=== PATIENT | male | born 1975 | race Hispanic/Latino ===

== ENCOUNTER 2018-08-25 23:14 | Emergency (ER) | payer OTHER ==
[2018-08-25 23:20] VITALS: RESP 18; TEMP 98.3
--- NOTE | 2018-08-26 01:07 | ED PDOC ---
HPI: Chest Pain Time Seen by Provider: 08/25/18 23:25 Chief Complaint (Nursing): Anxiety Chief Complaint (Provider): Chest Pain and Anxiety History Per: Patient History/Exam Limitations: no limitations Onset/Duration Of Symptoms: Hrs (x1) Current Symptoms Are (Timing): Still Present Additional Complaint(s): 43 y/o male with a PMHx of HIV, HTN and Anxiety presents to the ED for evaluation of chest pain, onset one hour prior to arrival. Patient's last viral load is undetectable. Patient reports of having drank 4-5 coffees today and feeling anxious. Patient states while at home, his heart began racing associated with numbness to the hands and feet and sudden onset of dizziness thus prompting patient to call 911. Patient reports of taking Xanax prior to arrival with a resolution in symptoms. Of note, patient reports symptoms are similar to previous anxiety attacks but was more severe. Patient additionally reports of a history of polycythemia at which time required phlebotomy. PMD: Out of [facility] Past Medical History Reviewed: Historical Data, Nursing Documentation, Vital Signs Vital Signs: Last Vital Signs Temp 98.3 F 08/25/18 23:18 Pulse 76 08/25/18 23:18 Resp 18 08/25/18 23:18 BP 163/107 H 08/25/18 23:18 Pulse Ox 100 08/25/18 23:18 - Medical History PMH: Anxiety, HIV, HTN Denies: Chronic Kidney Disease - Surgical History Surgical History: Appendectomy, Cholecystectomy - Family History Family History: States: Unknown Family Hx - Immunization History Hx Tetanus Toxoid Vaccination: No Hx Influenza Vaccination: No Hx Pneumococcal Vaccination: No - Allergies Allergies/Adverse Reactions: Allergies Allergy/AdvReac Type Severity Reaction Status Date / Time No Known Allergies Allergy Verified 08/25/18 23:17 Review of Systems ROS Statement: Except As Marked, All Systems Reviewed And Found Negative Cardiovascular: Positive for: Chest Pain Gastrointestinal: Negative for: Nausea, Vomiting Neurological: Positive for: Numbness Psych: Positive for: Anxiety Physical Exam - Reviewed Nursing Documentation Reviewed: Yes Vital Signs Reviewed: Yes - Physical Exam Appears: Positive for: No Acute Distress Head Exam: Positive for: ATRAUMATIC, NORMOCEPHALIC Skin: Positive for: Normal Color, Warm, Dry Eye Exam: Positive for: Normal appearance, EOMI, PERRL Neck: Positive for: Normal, Painless ROM, Supple Cardiovascular/Chest: Positive for: Regular Rate, Rhythm. Negative for: Murmur Respiratory: Positive for: Normal Breath Sounds. Negative for: Respiratory Distress Gastrointestinal/Abdominal: Positive for: Normal Exam, Soft. Negative for: Tenderness Extremity: Positive for: Normal ROM. Negative for: Pedal Edema, Deformity Neurologic/Psych: Positive for: Alert, Oriented. Negative for: Motor/Sensory Deficits - Laboratory Results Result Diagrams: 08/26/18 00:20 08/26/18 00:20 - ECG ECG: Positive for: Interpreted By Me, Viewed By Me ECG Rhythm: Positive for: Sinus Rhythm () Rate: 76 O2 Sat by Pulse Oximetry: 100 (RA) Pulse Ox Interpretation: Normal Medical Decision Making Medical Decision Making: Time: 001 Impression: 43 y/o male with chest pain, insetting of known anxiety. Plan: -- EKG -- Alcohol Serum -- CMP -- Urine Drug Screen -- Troponin I -- CBC with Differentials -- Heplock Insertion Time: 0148 -- Labs demonstrate no clinically significant abnormalities except for elevated hemoglobin that remains consistent with previous history of previous of polycythemia Patient remains asymptomatic at this time. Patient is stable for discharge home with a diagnosis of anxiety. Scribe Attestation: Documented by Rima Hernandez, acting as a scribe for Garett Trevizo MD. Provider Scribe Attestation: All medical record entries made by the Scribe were at my direction and personally dictated by me. I have reviewed the chart and agree that the record accurately reflects my personal performance of the history, physical exam, medical decision making, and the department course for this patient. I have also personally directed, reviewed, and agree with the discharge instructions and disposition. Disposition - Clinical Impression Clinical Impression: Anxiety attack - Patient ED Disposition Is Patient to be Admitted: No Counseled Patient/Family Regarding: Studies Performed, Diagnosis - Disposition Disposition: Routine/Home Disposition Time: 01:48 Condition: STABLE Instructions: Panic Disorder Forms: [facility] (Nepali)
[2018-08-26 01:12] LABS: BASO # 0.1 K/uL (0.0-0.2); EOS # 0.2 K/uL (0.0-0.7); EOS % 2.7 % (0.0-4.0); HEMOGLOBIN 18.2 g/dL (12.0-18.0); LYMPH % 27.9 % (20.0-40.0); MEAN CELL VOLUME 89.7 fl (80.0-94.0); MEAN CORPUSCULAR HEMOGLOBIN 30.5 pg (27.0-31.0); MEAN PLATELET VOLUME 7.9 fl (7.2-11.7); MONO % 14.5 % (0.0-10.0); NEUT # 3.9 K/uL (1.8-7.0); NEUT % 53.9 % (50.0-75.0); NRBC % 0.1 % (0.0-0.0); RBC 5.95 Mil/uL (4.40-5.90); RED CELL DISTRIBUTION WIDTH 16.1 % (11.5-14.5); WHITE BLOOD COUNT 7.2 K/uL (4.8-10.8)
[2018-08-26 01:26] LABS: BARBITURATES, UR NEGATIVE (NEGATIVE); BENZODIAZEPINES, UR POSITIVE (NEGATIVE); OPIATES, UR NEGATIVE (NEGATIVE); PHENCYCLIDINE, UR NEGATIVE (NEGATIVE)
[2018-08-26 01:29] LABS: ALB/GLOB RATIO 1.4 (1.0-2.1); ALBUMIN 4.3 g/dL (3.5-5.0); ALT/SGPT 41 U/L (21-72); AST/SGOT 40 U/L (17-59); BLOOD UREA NITROGEN 22 mg/dl (9-20); CALCIUM 9.2 mg/dL (8.4-10.2); GFR NON-AFRICAN AMERICAN > 60
[2018-08-26 02:20] VITALS: BP 134/64; PULSE 65; O2SAT 98
--- NOTE | 2018-08-27 09:31 | CARD ---
APPROVED REPORT Date of service: 08/25/2018 EKG Measurement Heart [id number] <Conclusion> Sinus rhythm with 1st degree AV block Otherwise normal ECG
== END 2018-08-26 02:20 | disposition home or self-care (01) ==
LOC: H.ER 23:14
DX: F41.0 Panic disorder [episodic paroxysmal anxiety] (principal); D75.1 Secondary polycythemia; I10 Essential (primary) hypertension; I44.0 Atrioventricular block, first degree